=== PATIENT | female | born 1990 | race Caucasian/White ===

== ENCOUNTER 2017-06-28 19:37 | Emergency (ER) | payer SELFPAY ==
[~2017-06-28] VITALS: Ht 162.6 cm; Wt 67.6 kg
[2017-06-28 19:39] VITALS: BP_SYST 158
--- NOTE | 2017-06-28 19:39 | NUR ---
Patient triaged and placed in waiting room. VSS and patient appears in no acute distress at this time. Accompanied by FAMILY, awaiting available bed, and MD notified of need for MSE.
--- NOTE | 2017-06-28 20:50 | NUR ---
Patient left without being seen.
== END 2017-06-28 20:50 | disposition left against medical advice (07) ==
LOC: SED 19:37
DX: R21 Rash and other nonspecific skin eruption (principal); Z53.21 Procedure and treatment not carried out due to patient leaving prior to being seen by health care provider
CPT/HCPCS: J7030

== ENCOUNTER 2017-10-18 12:06 | Emergency (ER) | payer MEDICAID ==
[~2017-10-18] VITALS: Ht 162.6 cm; Wt 69.9 kg
[2017-10-18 12:32] VITALS: BP_SYST 194
[2017-10-18] MEDS ORDERED: HYDROcodone/ACETAMIN 5-325 MG TAB (NORCO/ VICODIN) PO ONE (12:45)
[2017-10-18] MEDS ORDERED: cloNIDine HCL 0.1 MG TABLET PO ONE (12:45)
[2017-10-18 15:12] VITALS: BP_SYST 152
== END 2017-10-18 15:12 | disposition home or self-care (01) ==
LOC: SED 12:06
DX: R51 Headache (principal); I10 Essential (primary) hypertension
CPT/HCPCS: 70450-TC; 81025; 99284

== ENCOUNTER 2018-02-07 05:23 | Emergency (ER) | payer MEDICAID ==
[~2018-02-07] VITALS: Ht 160 cm; Wt 63.5 kg
[2018-02-07 05:27] VITALS: BP_SYST 158
[2018-02-07] MEDS ORDERED: NACL 0.9% 1,000 ML IV ONE (05:57)
[2018-02-07] MEDS ORDERED: hydrALAZINE HCL 20 MG/ML VIAL IVP ONE (06:00)
[2018-02-07] MEDS ORDERED: MECLIZINE HCL 25 MG TABLET (ANITVERT) PO ONE (06:00)
[2018-02-07] MEDS ORDERED: PROCHLORPERAZINE EDISYLATE 10 MG/2 ML VIAL IVP ONE (06:15)
[2018-02-07 06:34] LABS: BASOPHILS % (AUTO) 0.2 % (0.0-2.0); EOSINOPHILS # (AUTO) 0.1 K/uL (0.0-0.4); EOSINOPHILS % (AUTO) 1.8 % (0.0-4.0); HEMATOCRIT 35.5 % (36-48); HEMOGLOBIN 11.5 g/dL (12.0-16.0); LYMPHOCYTES # (AUTO) 1.6 K/uL (1.0-5.5); LYMPHOCYTES % (AUTO) 23.9 % (20.5-51.5); MEAN CORPUSCULAR HEMOGLOBIN 25 pg (27-31); MEAN CORPUSCULAR HGB CONC 32 % (32-36); MEAN CORPUSCULAR VOLUME 77 fL (79.0-98.0); MONOCYTES # (AUTO) 0.7 K/uL (0.0-1.0); MONOCYTES % (AUTO) 9.7 % (1.7-9.3); NEUTROPHILS # (AUTO) 4.5 K/uL (1.8-7.7); NEUTROPHILS % (AUTO) 64.4 % (40.0-70.0); PLATELET COUNT (AUTO) 318 K/uL (130-430); RED BLOOD CELL COUNT(AUTO) 4.61 MIL/uL (4.2-6.2); RED CELL DISTRIBUTION WIDTH 16.1 % (9.0-15.0); WHITE BLOOD COUNT (AUTO) 6.9 K/uL (4.8-10.8)
[2018-02-07 06:45] LABS: CALCIUM 8.7 mg/dL (8.4-11.0); CREATININE 0.6 mg/dL (0.55-1.30); POTASSIUM 3.6 mmol/L (3.5-5.1)
[2018-02-07 06:50] LABS: ALBUMIN 3.8 g/dL (3.4-4.8); TOTAL BILIRUBIN 0.3 mg/dL (0.0-1.0)
[2018-02-07 06:51] LABS: PROTHROMBIN TIME 10.3 SECS (9.5-12.5)
[2018-02-07 07:00] LABS: BILIRUBIN,URINE NEGATIVE (NEGATIVE); BLOOD, URINE NEGATIVE (NEGATIVE); CLARITY/URINE SL HAZY (CLEAR); COLOR,URINE YELLOW (YELLOW); GLUCOSE,URINE NEGATIVE (NEGATIVE); KETONES,URINE NEGATIVE (NEGATIVE); LEUKOCYTE ESTERASE ,URINE NEGATIVE (NEGATIVE); NITRITE, URINE NEGATIVE (NEGATIVE); PROTEIN URINE NEGATIVE (NEGATIVE); UROBILINOGEN,URINE 0.2 (0.2-1.0)
[2018-02-07 07:21] VITALS: BP_SYST 138
== END 2018-02-07 07:21 | disposition home or self-care (01) ==
LOC: SED 05:23
DX: I10 Essential (primary) hypertension (principal); R42 Dizziness and giddiness; G43.909 Migraine, unspecified, not intractable, without status migrainosus
CPT/HCPCS: 36415; 80053; 81003; 81025; 85025; 85610; 85730; 96361; 96374; 96375; 99284; J0360; J0780; J7030; J8597

== ENCOUNTER 2018-06-06 16:06 | Emergency (ER) | payer MEDICAID ==
[~2018-06-06] VITALS: Ht 160 cm; Wt 65.8 kg
[2018-06-06 16:06] VITALS: BP_SYST 152
[2018-06-06] MEDS ORDERED: SILVER SULFADIAZINE 1%, 25 GM TOPICAL CREAM (SSD) TP ONE (16:45)
[2018-06-06] MEDS ORDERED: ACETAMINOPHEN 500 MG TABLET PO ONE (16:45)
[2018-06-06] MEDS ORDERED: cloNIDine HCL 0.1 MG TABLET PO ONE ×2 (16:45→18:30)
[2018-06-06] MEDS ORDERED: hydrALAZINE HCL 20 MG/ML VIAL IM ONE (18:15)
[2018-06-06 19:00] VITALS: BP_SYST 152
== END 2018-06-06 19:00 | disposition home or self-care (01) ==
LOC: SED 16:06
DX: T23.271A Burn of second degree of right wrist, initial encounter (principal); T24.112A Burn of first degree of left thigh, initial encounter; I10 Essential (primary) hypertension; V98.8XXA Other specified transport accidents, initial encounter; W22.11XA Striking against or struck by driver side automobile airbag, initial encounter; Y93.I9 Activity, other involving external motion; Y92.89 Other specified places as the place of occurrence of the external cause; Y99.8 Other external cause status
CPT/HCPCS: 81025; 99284

== ENCOUNTER 2019-02-28 08:37 | Emergency (ER) | payer MEDICAID ==
[~2019-02-28] VITALS: Ht 160 cm; Wt 67.1 kg
[2019-02-28 08:37] VITALS: BP_SYST 145
[2019-02-28] MEDS ORDERED: IBUPROFEN 600 MG TABLET PO ONE (09:15)
[2019-02-28 09:20] VITALS: BP_SYST 164
== END 2019-02-28 09:20 | disposition home or self-care (01) ==
LOC: SED 08:37
DX: M94.0 Chondrocostal junction syndrome [Tietze] (principal); I10 Essential (primary) hypertension
CPT/HCPCS: 93005; 99282; 99283

== ENCOUNTER 2020-03-25 11:52 | Emergency (ER) | payer MEDICAID ==
[~2020-03-25] VITALS: Ht 157.5 cm; Wt 69.4 kg
[2020-03-25 12:19] VITALS: BP_SYST 135
--- NOTE | 2020-03-25 12:36 | NUR ---
PLACED IN HALLWAY. DR. COX AT BEDSIDE EXAMINING
[2020-03-25 12:45] VITALS: BP_SYST 121
--- NOTE | 2020-03-25 12:45 | NUR ---
Patient given written and verbal discharge instructions and verbalizes understanding. ER MD discussed with patient the results and treatment provided. Patient in stable condition. ID arm band removed. Rx of azithromycin, sudafed, ibuprofen given. Patient educated on pain management and to follow up with PMD. Pain Scale 0/10 Opportunity for questions provided and answered. Medication side effect fact sheet provided.
== END 2020-03-25 12:45 | disposition home or self-care (01) ==
LOC: SED 11:52
DX: J40 Bronchitis, not specified as acute or chronic (principal); I10 Essential (primary) hypertension
CPT/HCPCS: 99283

== ENCOUNTER 2020-08-08 02:56 | Emergency (ER) | payer MEDICAID ==
[~2020-08-08] VITALS: Ht 154.9 cm; Wt 72.6 kg
[2020-08-08 03:05] VITALS: BP_SYST 157
[2020-08-08 04:45] VITALS: BP_SYST 157
== END 2020-08-08 04:45 | disposition home or self-care (01) ==
LOC: SED 02:56
DX: R04.0 Epistaxis (principal); H60.91 Unspecified otitis externa, right ear; I10 Essential (primary) hypertension
CPT/HCPCS: 99283

== ENCOUNTER 2020-12-09 11:51 | Emergency (ER) | payer OTHER, MEDICAID ==
[~2020-12-09] VITALS: Ht 160 cm; Wt 68.0 kg
[2020-12-09 12:09] VITALS: BP_SYST 159
[2020-12-09] MEDS ORDERED: IBUP-1969 PO (12:42)
[2020-12-09 13:00] VITALS: BP_SYST 159
== END 2020-12-09 13:01 | disposition home or self-care (01) ==
LOC: SED 11:51
DX: M79.602 Pain in left arm (principal); I10 Essential (primary) hypertension; V49.9XXA Car occupant (driver) (passenger) injured in unspecified traffic accident, initial encounter; Y93.89 Activity, other specified; Y92.413 State road as the place of occurrence of the external cause; Y99.8 Other external cause status
CPT/HCPCS: 99283

== ENCOUNTER 2021-06-20 06:31 | Emergency (ER) | payer MEDICAID ==
[~2021-06-20] VITALS: Ht 154.9 cm; Wt 76.2 kg
[~2021-06-20 06:31] MED LIST: IBUP-1969 PO
[2021-06-20 06:35] VITALS: BP_SYST 115
== END 2021-06-20 09:00 | disposition left against medical advice (07) ==
LOC: SED 06:31
DX: R21 Rash and other nonspecific skin eruption (principal); Z53.21 Procedure and treatment not carried out due to patient leaving prior to being seen by health care provider

== ENCOUNTER 2021-09-18 19:56 | Emergency (ER) | payer MEDICAID, SELFPAY ==
[~2021-09-18] VITALS: Ht 160 cm; Wt 72.6 kg
[2021-09-18 20:00] VITALS: BP_SYST 130
--- NOTE | 2021-09-18 20:00 | NUR ---
Patient triaged and placed in waiting room. VSS and patient appears in no acute distress at this time. Accompanied by SELF, awaiting available bed, and MD notified of need for MSE.
[2021-09-18] MEDS ORDERED: ACETAMINOPHEN 325 MG TABLET ONE (20:15)
--- NOTE | 2021-09-18 20:18 | NUR ---
MEDICATED PER FEVER PROTOCOL. TEMP 103.3
--- NOTE | 2021-09-18 21:11 | NUR ---
BROUGHT BACK TO BED #7 AND REPORT GIVEN TO CAMMY
--- NOTE | 2021-09-18 21:30 | NUR ---
Pt walked in c/o generalized abdominal pain, +N/V/D since 2am. +febrile in triage.
[2021-09-18 21:59] LABS: BASOPHILS % (AUTO) 0.1 % (0.0-2.0); HEMATOCRIT 38.8 % (36-48); HEMOGLOBIN 13.3 g/dL (12.0-16.0); LYMPHOCYTES # (AUTO) 0.6 K/uL (1.0-5.5); MEAN CORPUSCULAR HEMOGLOBIN 29 pg (27-31); MEAN CORPUSCULAR HGB CONC 34 % (32-36); MEAN CORPUSCULAR VOLUME 85 fL (79.0-98.0); MONOCYTES # (AUTO) 0.4 K/uL (0.0-1.0); MONOCYTES % (AUTO) 4.4 % (1.7-9.3); NEUTROPHILS # (AUTO) 7.4 K/uL (1.8-7.7); NEUTROPHILS % (AUTO) 88.5 % (40.0-70.0); PLATELET COUNT (AUTO) 244 K/uL (130-430); RED BLOOD CELL COUNT(AUTO) 4.55 MIL/uL (4.2-6.2); RED CELL DISTRIBUTION WIDTH 13.5 % (9.0-15.0); WHITE BLOOD COUNT (AUTO) 8.4 K/uL (4.8-10.8)
--- NOTE | 2021-09-18 22:00 | NUR ---
DR MEDEIROS AT BEDSIDE FOR EVALUATION
[2021-09-18 22:55] LABS: BILIRUBIN,URINE NEGATIVE (NEGATIVE); BLOOD, URINE NEGATIVE (NEGATIVE); CLARITY/URINE CLEAR (CLEAR); COLOR,URINE YELLOW (YELLOW); GLUCOSE,URINE NEGATIVE (NEGATIVE); KETONES,URINE NEGATIVE (NEGATIVE); LEUKOCYTE ESTERASE ,URINE NEGATIVE (NEGATIVE); NITRITE, URINE POSITIVE (NEGATIVE); PH,URINE 5.5 (5.0-8.0); PROTEIN URINE NEGATIVE (NEGATIVE); UROBILINOGEN,URINE 0.2 (0.2-1.0)
[2021-09-18 23:23] LABS: BACTERIA,URINE MANY /HPF (None Seen); WBC,URINE 0-3 /HPF (0-3)
[2021-09-18 23:23] LABS: POTASSIUM 3.4 mmol/L (3.5-5.1)
[2021-09-18 23:24] LABS: ALBUMIN 3.6 g/dL (3.4-4.8); CREATININE 0.76 mg/dL (0.55-1.30); TOTAL BILIRUBIN 0.2 mg/dL (0.0-1.0)
--- NOTE | 2021-09-19 00:40 | NUR ---
pt tolerated PO challenge.
[2021-09-19] MEDS ORDERED: ONDA4TAB5 PO (01:08)
[2021-09-19 01:30] VITALS: BP_SYST 111
--- NOTE | 2021-09-19 01:30 | NUR ---
Patient given written and verbal discharge instructions and verbalizes understanding. ER MD discussed with patient the results and treatment provided. Patient in stable condition. ID arm band removed. IV catheter removed intact and dressing applied, no active bleeding. Rx of ZOFRAN given. Patient educated on pain management and to follow up with PMD. Pain Scale 0/10. Opportunity for questions provided and answered. Medication side effect fact sheet provided.
== END 2021-09-19 01:30 | disposition home or self-care (01) ==
LOC: SED 19:56
DX: R10.33 Periumbilical pain (principal); I10 Essential (primary) hypertension; Z20.822 Contact with and (suspected) exposure to COVID-19
CPT/HCPCS: 36415; 74177; 76376; 80053; 81000; 83605; 83690; 84702; 85025; 87040; 87086; 87426; 99285; Q9967

== ENCOUNTER 2022-02-10 11:34 | Emergency (ER) | payer MEDICAID ==
[~2022-02-10] VITALS: Ht 167.6 cm; Wt 72.6 kg
[~2022-02-10 11:34] MED LIST changes: +ONDA4TAB5 PO
[2022-02-10 11:42] VITALS: BP_SYST 140
[2022-02-10] MEDS ORDERED: ONDANSETRON 4 MG ODT TAB PO ONE (11:45)
[2022-02-10] MEDS ORDERED: CEPH-548 PO (12:12)
[2022-02-10] MEDS ORDERED: PHEN-801 PO (12:12)
[2022-02-10] MEDS ORDERED: PHENAZOPYRIDINE HCL 100 MG TABLET PO ONE (12:15)
[2022-02-10] MEDS ORDERED: cephALEXin 500 MG CAPSULE PO ONE (12:15)
[2022-02-10 12:37] VITALS: BP_SYST 108
[2022-02-10 12:37] LABS: BILIRUBIN,URINE NEGATIVE (NEGATIVE); CLARITY/URINE CLEAR (CLEAR); COLOR,URINE YELLOW (YELLOW); GLUCOSE,URINE NEGATIVE (NEGATIVE); KETONES,URINE NEGATIVE (NEGATIVE); LEUKOCYTE ESTERASE ,URINE NEGATIVE (NEGATIVE); NITRITE, URINE NEGATIVE (NEGATIVE); PROTEIN URINE NEGATIVE (NEGATIVE); UROBILINOGEN,URINE 0.2 (0.2-1.0)
[2022-02-10 12:54] LABS: BLOOD, URINE TRACE (NEGATIVE)
[2022-02-10 13:06] LABS: BACTERIA,URINE None Seen /HPF (None Seen); RBC,URINE 0-3 /HPF (0-3); WBC,URINE NONE SEEN /HPF (0-3)
== END 2022-02-10 12:37 | disposition home or self-care (01) ==
LOC: SED 11:34
DX: R30.0 Dysuria (principal); I10 Essential (primary) hypertension; Z79.899 Other long term (current) drug therapy
CPT/HCPCS: 81000; 81025; 99284; Q0162; 81002